=== PATIENT | female | born 1935 | race Caucasian/White ===

== ENCOUNTER 2019-10-01 21:53 | Emergency (ER) | payer MEDICARE ==
[~2019-10-01] VITALS: Ht 149.9 cm; Wt 69.3 kg
--- NOTE | 2019-10-01 22:07 | PHYS DOC ---
Past History Past Medical History: Other (ZINA TIMMONS MD) Adult General Chief Complaint Chief Complaint: WEAKNESS/GENERALIZED... " I am so weak.. I fell again.. I just fracture this arm..." HPI HPI Patient is a 84 year old female who presents with above hx and complaints increased weakness. Patient falling at home. Patient recent home fall resulted in fracture left forearm. Pt. seen at [facility]- radial fx splinted. Patient complaining of increased pain in left arm. Orthro follow up may be 2 weeks out per family. Pt. hx unstable gait. Pt. normally follows with Dr. Jim Diaz. Pt. did use a walker on transfer, but now unable because of arm fx. Family requesting admission or rehab. placement. (ZINA TIMMONS MD) Review of Systems Review of Systems Constitutional: Denies fever or chills [] Eyes: Denies change in visual acuity, redness, or eye pain [] HENT: Denies nasal congestion or sore throat [] Respiratory: Denies cough or shortness of breath [] Cardiovascular: No additional information not addressed in HPI [] GI: Denies abdominal pain, nausea, vomiting, bloody stools or diarrhea [] : Denies dysuria or hematuria [] Musculoskeletal: Complaints of generalized weakness. Lt arm pain, edema, - recent fx Integument: Denies rash or skin lesions [] Neurologic: Denies headache, focal weakness or sensory changes [] Endocrine: Denies polyuria or polydipsia [] All other systems were reviewed and found to be within normal limits, except as documented in this note. (ZINA TIMMONS MD) Family History Family History Non-contributory (ZINA TIMMONS MD) Current Medications Current Medications See Nursing for home meds (ZINA TIMMONS MD) Allergies Allergies Acetaminophe (ZINA TIMMONS MD) Physical Exam Physical Exam Constitutional: Moderate acute distress, non-toxic appearance. [] HENT: Normocephalic, atraumatic, bilateral external ears normal, oropharynx moist, no oral exudates, nose normal. [] Eyes: PERRLA, EOMI, conjunctiva normal, no discharge. [] Neck: Normal range of motion, no tenderness, supple, no stridor. [] Cardiovascular:TachycardiaHeart rate regular rhythm, no murmur []PMI to Lt. Lungs & Thorax: Bilateral breath sounds equal apex auscultation [] Abdomen: Bowel sounds normal, soft, no tenderness, no masses, no pulsatile masses. Obese Skin: Warm, dry, no erythema, no rash. Poor turgor Back: No tenderness, no CVA tenderness. [] Extremities: Right forearm tenderness, no cyanosis, no clubbing, right forearm edema. [] Splinted. Distal capillary refill is equal to right hand. Lt. arm in splint. Neurologic: Alert, moves other extremities on request and has distal sensory function, Psychologic: Affect anxious, mood depressed (ZINA TIMMONS MD) EKG EKG My interpretation EKG shows a sinus rhythm at 90 bpm. No findings acute STEMI of contralateral changes.[] (ZINA TIMMONS MD) Radiology/Procedures Radiology/Procedures [[place] [address] IMAGING REPORT Signed PATIENT: WANG SHORT ACCOUNT: [id number] : 1935 LOCATION: ER AGE: 84 SEX: F EXAM STATUS: PRE ER ORD. PHYSICIAN: ZINA TIMMONS MD REASON: falling PROCEDURE: CT HEAD WO CONTRAST Exam: CT head INDICATION: Falling TECHNIQUE: Sequential axial images through the head were obtained without the administration of IV contrast. Comparisons: 10/01/2019 FINDINGS: No focal parenchymal lesion or hemorrhage is identified. There is no midline shift or sulcal effacement. No acute vascular territory infarction is identified. Briscoe-white distinction is preserved. The ventricular system is within normal limits without compression hydrocephalus. The basal cisterns are well maintained. The visualized portions of the paranasal sinuses and mastoid air cells are well-pneumatized. No acute fractures. IMPRESSION: No acute intracranial abnormality. Exposure: One or more of the following in the visualized dose reduction techniques were utilized for this examination: 1. Automated exposure control 2. Adjustment of the MA and/or KV according to patient size Use of iterative of reconstructive technique Electronically signed by: Sakina Vega MD (10/01/2019 11:00 PM) [facility] [id number] DICTATED AND SIGNED BY: SAKINA VEGA MD DATE: 10/01/192299 CC: ZINA TIMMONS MD ~ [address] [place] [id number] IMAGING REPORT Signed PATIENT: WANG SHORT ACCOUNT: [id number] : 1935 LOCATION: ER AGE: 84 SEX: F EXAM STATUS: PRE ER ORD. PHYSICIAN: ZINA TIMMONS MD REASON: repeat fall, hx fx PROCEDURE: FOREARM LEFT EXAM: AP and lateral views of the left forearm DATE: 10/01/2019 10:02 PM INDICATION: Fall, history of fracture COMPARISON: 10/01/2019 FINDINGS/ IMPRESSION: Interval reduction of the known intra-articular distal radial fracture, now with neutral radial tilt. Moderate soft tissue swelling about the left wrist. Electronically signed by: Zeke Hernández MD (10/01/2019 11:03 PM) [id number] DICTATED AND SIGNED BY: EZKE HERNÁNDEZ MD DATE: 10/01/192302 CC: ZINA TIMMONS MD ~ ][address] [address] IMAGING REPORT Signed PATIENT: FAUSTINO PATTERSON ACCOUNT: [id number] : 04/30/1960 LOCATION: ER AGE: 59 SEX: M EXAM STATUS: PRE ER ORD. PHYSICIAN: ZINA TIMMONS MD REASON: RENAL FAILURE, DIALYSIS, SWELLING. PROCEDURE: CHEST PA & LATERAL CHEST PA LATERAL Technique: PA and lateral views of the chest were obtained. Clinical History: Renal failure and swelling Comparison: September 23, 2019. Findings: The heart is top normal limits in size. The pulmonary vessels appear preserved reticular opacities of lungs. Median sternotomy wires and left-sided defibrillator again seen. The lungs are hyperinflated. Impression: Reticular opacities unchanged since the recent chest x-ray but slightly increased from August 04, 2018. This is likely chronic pulmonary fibrosis with superimposition of mild fluid overload versus atypical pneumonia. Electronically signed by: Kassandra Briscoe III, MD (10/02/2019 12:03 AM) [id number] DICTATED AND SIGNED BY: KASSANDRA BRISCOE III, MD DATE: 10/02/19 0003 CC: ZINA TIMMONS MD; ANDREAS PETER ~ (ZINA TIMMONS MD) Course & Med Decision Making Course & Med Decision Making Pertinent Labs and Imaging studies reviewed. (See chart for details) Pt. has specialized insurance- unable to contact insurance company to approve observation admission. Unable to care for herself at home. Impression; 1. Increase weakness 2. Frequent falls 3. Fractured left radius 4. Thrombocytopenia. 107 5. CHF-diastolic dysfunction [id number] 6. Mild hypokalemia 3.3 7. Elevated D-dimer 0.72 8. Gait Disorder Pt. endorsed to Dr. Craven at shift[] (ZINA TIMMONS MD) Course & Med Decision Making Due to insurance, the patient is unable to be admitted to this facility. I discussed the patient's with the [facility] transfer center and Dr. Farrar is acc epted her for transfer. The family is in agreement with transfer to [facility]'s system. (KAREN CRAVEN DO) Dragon Disclaimer Dragon Disclaimer This electronic medical record was generated, in whole or in part, using a voice recognition dictation system. (ZINA TIMMONS MD) Departure Departure: Disposition: 01 HOME/RESIDENCE PRIOR TO ADM Condition: STABLE Dragon Disclaimer This chart was dictated in whole or in part using Voice Recognition software in a busy, high-work load, and often noisy Emergency Department environment. It may contain unintended and wholly unrecognized errors or omissions. (ZINA TIMMONS MD) Dragon Disclaimer This chart was dictated in whole or in part using Voice Recognition software in a busy, high-work load, and often noisy Emergency Department environment. It may contain unintended and wholly unrecognized errors or omissions. (ZINA TIMMONS MD) ZINA TIMMONS MD Oct 01, 2019 22:07 KAREN CRAVEN DO Oct 02, 2019 07:48
[2019-10-01] MEDS ORDERED: MORPHINE SULFATE 10 MG/ML SYRINGE. SQ ONE (22:30)
[2019-10-01] MEDS ORDERED: IV RINGERS SOLUTION,LACTATED 1,000 ML IV SCH (22:30)
--- NOTE | 2019-10-01 23:03 | RAD ---
Exam: CT head INDICATION: Falling TECHNIQUE: Sequential axial images through the head were obtained without the administration of IV contrast. Comparisons: 10/01/2019 FINDINGS: No focal parenchymal lesion or hemorrhage is identified. There is no midline shift or sulcal effacement. No acute vascular territory infarction is identified. Briscoe-white distinction is preserved. The ventricular system is within normal limits without compression hydrocephalus. The basal cisterns are well maintained. The visualized portions of the paranasal sinuses and mastoid air cells are well-pneumatized. No acute fractures. IMPRESSION: No acute intracranial abnormality. Exposure: One or more of the following in the visualized dose reduction techniques were utilized for this examination: 1. Automated exposure control 2. Adjustment of the MA and/or KV according to patient size Use of iterative of reconstructive technique Electronically signed by: Sakina Lujan MD (10/01/2019 11:00 PM) [facility]
--- NOTE | 2019-10-01 23:05 | RAD ---
Exam: Chest one view INDICATION: Fall TECHNIQUE: Frontal view of the chest Comparisons: None FINDINGS: The cardiomediastinal silhouette and pulmonary vessels are within normal limits. The lung and pleural spaces are clear. IMPRESSION: No acute cardiopulmonary process. Electronically signed by: Sakina Lujan MD (10/01/2019 11:02 PM) [facility]
--- NOTE | 2019-10-01 23:06 | RAD ---
EXAM: AP and lateral views of the left forearm DATE: 10/01/2019 10:02 PM INDICATION: Fall, history of fracture COMPARISON: 10/01/2019 FINDINGS/ IMPRESSION: Interval reduction of the known intra-articular distal radial fracture, now with neutral radial tilt. Moderate soft tissue swelling about the left wrist. Electronically signed by: Zeke Choi MD (10/01/2019 11:03 PM) [id number]
[2019-10-02] MEDS ORDERED: ONDANSETRON ODT 4 MG TAB.RAPDIS PO ONE
[2019-10-02 00:31] LABS: BASO % 0 % (0-3); EOS % 0 % (0-3); HEMATOCRIT 40.2 % (36.0-47.0); HEMOGLOBIN 13.3 g/dL (12.0-15.5); LYMPH # 0.6 x10^3/uL (1.0-4.8); LYMPH % 11 % (24-48); MEAN CORPUSCULAR HEMOGLOBIN 30 pg (25-35); MEAN CORPUSCULAR HGB CONC 33 g/dL (31-37); MEAN CORPUSCULAR VOLUME 91 fL (79-100); MONO # 0.5 x10^3/uL (0.0-1.1); MONO % 9 % (0-9); NEUT # 4.2 x10^3uL (1.8-7.7); NEUT % 80 % (31-73); PLATELET COUNT 107 x10^3/uL (140-400); RED CELL DISTRIBUTION WIDTH 15.1 % (11.5-14.5); WHITE BLOOD COUNT 5.2 x10^3/uL (4.0-11.0)
[2019-10-02 00:41] LABS: CALCIUM 9.1 mg/dL (8.5-10.1); CREATININE 0.8 mg/dL (0.6-1.0); GFR 68.5; POTASSIUM 3.3 mmol/L (3.5-5.1)
[2019-10-02 00:53] LABS: DIRECT BILIRUBIN 0.2 mg/dL (0.0-0.2); MAGNESIUM 1.8 mg/dL (1.8-2.4); TOTAL BILIRUBIN 0.6 mg/dL (0.2-1.0); TOTAL PROTEIN 7.2 g/dL (6.4-8.2)
[2019-10-02 01:38] LABS: SEDIMENTATION RATE 10 (0-25)
--- NOTE | 2019-10-02 02:06 | EKG ---
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
[2019-10-02 03:23] LABS: CLARITY,URINE CLEAR; COLOR,URINE YELLOW
[2019-10-02 03:24] LABS: BACTERIA,URINE 0 /HPF (0-FEW); BILIRUBIN,URINE NEG (NEG); GLUCOSE,URINE NEG (NEG); NITRITE,URINE NEG (NEG); RBC,URINE OCC /HPF (0-2); SQUAMOUS EPITHELIAL CELL,UR FEW /LPF; UROBILINOGEN,URINE 0.2 mg/dL (0.2 mg/dL); WBC,URINE OCC /HPF (0-4)
[2019-10-02 03:29] LABS: BARBITURATES NEG (NEG); BENZODIAZEPINES NEG (NEG); CANNABINOIDS NEG (NEG); COCAINE NEG (NEG); METHADONE NEG (NEG); OPIATES POS (NEG); PHENCYCLIDINE NEG (NEG)
[2019-10-02 03:31] LABS: AMPHETAMINE/METHAMPHETAMINE NEG (NEG)
[2019-10-02 03:40] LABS: INFLUENZA A PATIENT NEGATIVE (NEGATIVE); INFLUENZA B PATIENT NEGATIVE (NEGATIVE)
[2019-10-02] MEDS ORDERED: ENOXAPARIN ** NOTE DOSE ** SYRINGE SQ ONE (06:00)
[2019-10-02 10:44] VITALS: BP 159/73
== END 2019-10-02 11:05 | disposition short-term general hospital (02) ==
LOC: ER 21:53
DX: S52.502A Unspecified fracture of the lower end of left radius, initial encounter for closed fracture (principal); R53.1 Weakness; E87.6 Hypokalemia; D69.6 Thrombocytopenia, unspecified; R26.9 Unspecified abnormalities of gait and mobility; R79.1 Abnormal coagulation profile; I50.9 Heart failure, unspecified; W19.XXXA Unspecified fall, initial encounter; Y93.89 Activity, other specified; Y92.89 Other specified places as the place of occurrence of the external cause; Y99.8 Other external cause status
CPT/HCPCS: 36415; 70450; 71045; 73090; 80048; 80076; 80307; 81001; 82550; 83690; 83735; 83880; 84443; 84484; 85025; 85379; 85610; 85651; 85730; 87804; 93005; 96372; 99285; J1650; J2270; J7120; Q0162